=== PATIENT | male | born 1960 | race Caucasian/White ===

== ENCOUNTER 2018-04-19 10:33 | Emergency (ER) | payer SELFPAY ==
[2018-04-19 11:15] LABS: #Eosinphils 0.2 thou/uL (0.0-0.7); #Lymphocytes 1.9 thou/uL (1.20-3.40); #Monocytes 0.5 thou/uL (0.11-0.59); #Neutrophils 2.6 thou/uL (1.40-6.50); %Basophils 0.9 % (0.0-1.0); %Lymphocytes 36.6 % (21.0-51.0); %Monocytes 8.8 % (0.0-10.0); %Neutrophils 49.8 % (42.0-75.0); Hemoglobin 14.1 g/dL (14.0-18.0); Mean Corpuscular HGB CONC 33.2 g/dL (32.0-36.0); Mean Corpuscular Hemoglobin 26.7 pg (27.0-31.0); Mean Corpuscular Volume 80.7 fL (78.0-98.0); Mean Platelet Volume 7.2 fL (7.4-10.4); Platelet Count 174 thou/uL (130-400); Red Blood Cell (RBC) Count 5.28 mill/uL (4.70-6.10); White Blood Cell (WBC) Count 5.3 thou/uL (4.8-10.8)
[2018-04-19 11:22] LABS: ALT (SGPT) 56 U/L (8-55); AST (SGOT) 32 U/L (5-34); Albumin 4.6 g/dL (3.5-5.0); Alkaline Phosphatase 49 U/L (40-150); Anion Gap 12 mmol/L (10-20); BUN (Urea Nitrogen) 13 mg/dL (8.4-25.7); Bilirubin, Total 0.5 mg/dL (0.2-1.2); CK (CPK) 197 U/L (30-200); CKMB 3.9 ng/mL (0-6.6); Calc. Creatinine Clearance 0 mL/min (70-130); Calcium 9.7 mg/dL (7.8-10.44); Carbon Dioxide 26 mmol/L (22-29); Chloride 105 mmol/L (98-107); Estimated GFR-MDRD Greater than 90; Globulin 2.9 g/dL (2.4-3.5); Glucose 95 mg/dL (70-105); Potassium 4.2 mmol/L (3.5-5.1); Protein, Total 7.5 g/dL (6.0-8.3); Sodium 139 mmol/L (136-145); Troponin I Less than 0.010 ng/mL (< 0.028)
--- NOTE | 2018-04-19 11:41 | RAD ---
2 VIEW CHEST: Date: 04/19/18 HISTORY: Chest pain. Left arm pain. FINDINGS: The lung taveras are clear. Heart and mediastinum unremarkable. Vascular markings normal. Osseous stru ctures unremarkable. IMPRESSION: No acute abnormality identified. POS: [facility]
[2018-04-19] MEDS ORDERED: Cyclobenzaprine 10 MG TAB ONE (12:33)
== END 2018-04-19 12:35 | disposition home or self-care (01) ==
LOC: SCSER 10:33
DX: R07.89 Other chest pain (principal); M54.12 Radiculopathy, cervical region; E11.9 Type 2 diabetes mellitus without complications; I10 Essential (primary) hypertension; J44.9 Chronic obstructive pulmonary disease, unspecified; E78.5 Hyperlipidemia, unspecified; F32.9 Major depressive disorder, single episode, unspecified; Z79.4 Long term (current) use of insulin; Z79.899 Other long term (current) drug therapy
CPT/HCPCS: 36415; 71046; 80053; 82550; 82553; 84484; 85025; 93005

== ENCOUNTER 2019-05-20 14:59 | Outpatient (CLI) | payer OTHER ==
--- NOTE | 2019-05-20 15:32 | RAD ---
XR Chest Pa Lat STANDARD History: Disability exam Z 02.71 Comparison: Chest radiograph 2018 Findings: Lungs are clear. No pneumothorax. No effusion. No acute osseous abnormality. Heart size is mildly enlarged. Impression: No acute intrathoracic abnormality. No significant change.
--- NOTE | 2019-05-20 15:32 | RAD ---
XR Hip Rt 2-3 View History: Disability exam Z02.71 Comparison: None. Findings: No acute fracture or malalignment. Small acetabular osteophyte formation. Visualized portio n of the right obturator ring is intact. Impression: No acute fracture or malalignment.
== END 2019-05-20 15:00 | disposition home or self-care (01) ==
LOC: BICRAD 14:59
PROVIDERS: ATTEND Internal Medicine
DX: Z02.71 Encounter for disability determination (principal)
CPT/HCPCS: 71046

== ENCOUNTER 2019-12-26 19:30 | Outpatient (CLI) | payer MEDICAID | END 2019-12-26 19:31 | disposition home or self-care (01) | LOC: SLEEPLAB 19:30 | PROVIDERS: ATTEND Internal Medicine | DX: G47.33 Obstructive sleep apnea (adult) (pediatric) (principal) | CPT/HCPCS: 95811 ==

== ENCOUNTER 2020-01-22 08:45 | Outpatient (CLI) | payer OTHER ==
--- NOTE | 2020-01-22 09:38 | CT ---
EXAM: CT Abdomen Pelvis W WO con PROVIDED CLINICAL HISTORY: Prostatic hyperplasia COMPARISON: None FINDINGS: The visualized lung bases are free of significant opacity. Tiny nonobstructing inferior pole left renal calculus. No additional urinary tract calculi are eviden t. Subcentimeter hypodensity involving posterior left kidney, too small to definitively characterize but statistically reflecting a cyst. The solid abdominal organs demonstrate an otherwise unremarkable CT appearance. The delayed images demonstrate no evidence for filling defect involving the renal collecting systems, opacified ureters or urinary bladder. The prostate gland measures about 5.7 cm in width. There is no bowel dilatation, inflammatory fat stranding, free fluid or lymph node enlargement appare nt. Scattered vascular calcifications are seen. The osseous structures demonstrate no concerning lytic or blastic lesions. Lower lumbar spine facet a rthritis. IMPRESSION: Tiny nonobstructing inferior pole left renal calculus.
[2020-01-22] MEDS ORDERED: Iopamidol 370 76% 100 ML VIAL ONE (13:21)
== END 2020-01-22 08:46 | disposition home or self-care (01) ==
LOC: CT 08:45
PROVIDERS: ATTEND Urology
DX: N40.1 Benign prostatic hyperplasia with lower urinary tract symptoms (principal); R31.29 Other microscopic hematuria; R80.9 Proteinuria, unspecified; N20.0 Calculus of kidney
CPT/HCPCS: 74178; Q9967

== ENCOUNTER 2020-06-17 09:42 | Outpatient (CLI) | payer OTHER ==
--- NOTE | 2020-06-17 10:43 | RAD ---
XR Chest 1 View History: Preop evaluation Comparison: None. Findings: Lungs are clear. No pneumothorax. No effusion. Cardiac silhouette and mediastinal contours are within normal limits. Impression: No acute intrathoracic abnormality.
--- NOTE | 2020-06-21 17:26 | EKG ---
Test Reason : Blood Pressure : / mmHG Vent. Rate : 083 BPM Atrial Rate : 083 BPM P-R Int : 170 ms QRS Dur : 106 ms QT Int : 362 ms P-R-T Axes : 058 064 013 degrees QTc Int : 425 ms Normal sinus rhythm Normal ECG No previous ECGs available Confirmed by BJ SAWYER (2) on 06/21/2020 5:26:13 PM Referred By: CIPRIANO Confirmed By:BJ SAWYER
== END 2020-06-17 09:43 | disposition home or self-care (01) ==
LOC: LABBT 09:42
PROVIDERS: ATTEND Urology
DX: Z01.818 Encounter for other preprocedural examination (principal); N40.1 Benign prostatic hyperplasia with lower urinary tract symptoms; N52.9 Male erectile dysfunction, unspecified; E11.9 Type 2 diabetes mellitus without complications; Z79.4 Long term (current) use of insulin; N53.8 Other male sexual dysfunction; R31.29 Other microscopic hematuria; R80.9 Proteinuria, unspecified; Z87.898 Personal history of other specified conditions; N20.0 Calculus of kidney; N28.1 Cyst of kidney, acquired; N45.1 Epididymitis
CPT/HCPCS: 71045; 81001; 87086; 93005; 93010

== ENCOUNTER 2020-09-28 09:01 | Outpatient (CLI) | payer OTHER ==
[2020-09-28 09:52] LABS: Estimated GFR-MDRD - POC Greater than 90
[2020-09-28] MEDS ORDERED: Magnevist 469MG/ML 20 ML VIAL ONE (10:46)
--- NOTE | 2020-09-29 08:31 | MRI ---
MRI OF THE PROSTATE WITHOUT AND WITH CONTRAST: HISTORY: Prostate cancer. The patient has a history of TURP and prostate biopsy. TECHNIQUE: Multiplanar, multisequence MRI images were obtained of the prostate without and with IV contrast. FINDINGS: There is moderate hypertrophy of the central gland consistent with BPH. Prostate volume is estimated at 34 mL. There is a slight defect in the periurethral prostatic tissue consistent with prior TURP. There is high T1 signal in the right prostate, predominantly in a peripheral zone. This produces a l ow T2 signal lesion in the peripheral zone measuring 1.7 cm in greatest dimension. This is in the mi d gland extending to the apex. This demonstrates decreased signal on the diffusion sequence and ADC map consistent with artifact from blood products. No restricted diffusion is seen in the prostate. No suspicious areas of low signal are seen on the A DC map within the prostate. No suspicious low T2 signal lesions are seen in the prostate. The seminal vesicles are intact. The neurovascular bundles are intact. No pelvic adenopathy is seen . No marrow signal abnormality is present. No suspicious enhancement is seen. IMPRESSION: PIRADS category 2 - low likelihood that a clinically significant cancer is present. POS: [facility]
== END 2020-09-28 09:02 | disposition home or self-care (01) ==
LOC: TBSIIMAG 09:01
PROVIDERS: ATTEND Urology
DX: C61 Malignant neoplasm of prostate (principal); Z90.79 Acquired absence of other genital organ(s)
CPT/HCPCS: 72197; 82565; A9579

== ENCOUNTER 2020-10-27 06:18 | Day surgery (SDC) | payer OTHER ==
[2020-10-20 10:45] VITALS: BMI 39.6
[2020-10-27] MEDS ORDERED: Fentanyl 100 MCG/2 ML VIAL ONE (06:39)
[2020-10-27] MEDS ORDERED: cefTRIAXone\\ROCEPHIN 2 GM VIAL ONE (06:43)
[2020-10-27] MEDS ORDERED: Sodium Chloride 0.9% 100 ML ONE (06:43)
[2020-10-27] MEDS ORDERED: Levofloxacin 500 mg/D5W 100 ml Premix Bag ONE (06:43)
[2020-10-27] MEDS ORDERED: Propofol 1,000 MG/100 ML VIAL IV ONE (07:17)
[2020-10-27] MEDS ORDERED: Phenazopyridine HCl 100 MG TAB ONE ×2 (08:25→08:38)
[2020-10-27] MEDS ORDERED: Lidocaine 1% PF 5 ML VIAL ONE (08:33)
--- NOTE | 2020-10-27 08:58 | OP ---
DATE OF PROCEDURE: 10/27/2020 PRIMARY CARE PHYSICIAN: Mike Shin MD. PREOPERATIVE DIAGNOSES: 1. A 59-year-old male with history of benign prostatic hypertrophy status post transurethral resection of the prostate. 2. History of elevated prostate-specific antigen, previous biopsy negative for malignancy, status post transurethral resection with incidental pathologic T1-8, [place] score 3+3 prostate cancer, 1% of transurethral resection specimen. 3. Urgency. POSTOPERATIVE DIAGNOSES: 1. A 59-year-old male with history of benign prostatic hypertrophy status post transurethral resection of the prostate. 2. History of elevated prostate-specific antigen, previous biopsy negative for malignancy, status post transurethral resection with incidental pathologic T1-8, [place] score 3+3 prostate cancer, 1% of transurethral resection specimen. 3. Urgency. PROCEDURE: Cystoscopy, diagnostic; transrectal ultrasound volume study, prostate 12 core needle biopsy. ANESTHESIA: LMA. ESTIMATED BLOOD LOSS: Minimal. COMPLICATIONS: None apparent. DISPOSITION: To recovery room in stable condition. INTRAOPERATIVE FINDINGS: 1. Cystoscopy demonstrates good TUR defect with no evidence of bladder neck contracture, bladder neck wide open. There is mild residual adenoma at 6 o'clock position ventrally at the mid apical prostate nonobstructing. No evidence of bladder neck contracture, urethral stricture of concern. 2. Transrectal ultrasound volume study of 21.2 g. INDICATIONS FOR THE PROCEDURE AND HISTORY: Mr. Oshea is a 59-year-old morbidly obese male with prior history of elevated PSA in which he had undergone prostate biopsy negative for malignancy. He had severe BPH symptoms and underwent transurethral resection of prostate. Postoperatively, he did have some urgency and urge incontinence in which he had a VESIcare initiated. Subsequently, he had mild elevated PVR, therefore we discontinued his anticholinergics. He states that he has been doing well with minimal urgency and urge incontinence and flow is adequate and strong for patient. He presents today for diagnostic cystoscopy to rule out bladder neck contracture stricture due to history of incomplete voiding status post TURP, and a standard transrectal ultrasound prostate biopsy for staging of his prostate cancer. Risks and complications of procedure had been fully discussed with the patient including, but not limited to: Bleeding, pain, infection, injury to adjacent organs, urosepsis, bladder injury, possible bleeding complication requiring secondary procedure has been discussed with him in detail as well sepsis. DESCRIPTION OF PROCEDURE: After an informed consent was signed, the patient was taken to the operating room, placed in a dorsal lithotomy position with the genital area prepped and draped in the usual surgical sterile fashion. A 22-Faroese cystoscope was utilized, which demonstrated normal anterior urethra. Prostatic urethra was entered, which demonstrated a good adequate TUR defect. There was no significant obstruction of concern. There was mild residual adenoma at 6 o'clock position eventually at the mid prostate, however, this is nonobstructing. Bladder neck was wide open with no evidence of bladder neck contracture. At this time, we placed a 16-Faroese coude Sexton catheter without any significant issues obtain clear yellow urine. This was secured to gravity bag. He was then placed in a lateral decubitus position and a transrectal ultrasound was placed. A volume study was initiated, which demonstrated a length of 3.7, width of 5.0, height of 2.1 with volume estimated to be 21.2 g. Subsequently, we performed a standard 12 core needle prostate biopsy, which specimens were appropriately labeled and sent. He tolerated the procedure well and transported to the recovery room in stable condition. He is discharged with Levaquin x3 days, will see me for postop followup to review his pathology. We will continue to monitor his peak-flow PVR. addendum, no significant PVR postop. Job ID: [id number] [facility]
== END 2020-10-27 11:02 | disposition home or self-care (01) ==
LOC: SDC 06:18
PROVIDERS: ATTEND Urology
PROC: 0VB03ZX Excision of Prostate, Percutaneous Approach, Diagnostic (ICD-10-PCS; principal; 2020-10-27)
PROC: BV49ZZZ Ultrasonography of Prostate and Seminal Vesicles (ICD-10-PCS; principal; 2020-10-27)
DX: C61 Malignant neoplasm of prostate (principal); N40.1 Benign prostatic hyperplasia with lower urinary tract symptoms; N39.41 Urge incontinence; I10 Essential (primary) hypertension; J44.9 Chronic obstructive pulmonary disease, unspecified; E11.9 Type 2 diabetes mellitus without complications; E78.5 Hyperlipidemia, unspecified; H91.90 Unspecified hearing loss, unspecified ear; E66.9 Obesity, unspecified; Z68.39 Body mass index [BMI] 39.0-39.9, adult; Z79.4 Long term (current) use of insulin; Z79.899 Other long term (current) drug therapy; Z88.5 Allergy status to narcotic agent
CPT/HCPCS: 36416; 88305; J0696; J1956; J2704; J3010; J3490

== ENCOUNTER 2021-11-22 09:53 | Outpatient (CLI) | payer OTHER | END 2021-11-22 09:54 | disposition home or self-care (01) | LOC: BICRAD 09:53 | PROVIDERS: ATTEND Nurse Practitioner Family | DX: Z01.818 Encounter for other preprocedural examination (principal) | CPT/HCPCS: 71046 ==

== ENCOUNTER 2022-11-07 09:32 | Outpatient (CLI) | payer OTHER ==
[2022-11-07] MEDS ORDERED: Magnevist 469MG/ML 20 ML VIAL ONE (13:24)
== END 2022-11-07 09:33 | disposition home or self-care (01) ==
LOC: TBSIIMAG 09:32
PROVIDERS: ATTEND Urology
DX: C61 Malignant neoplasm of prostate (principal)
CPT/HCPCS: 72197; A9579

== ENCOUNTER 2023-02-21 12:31 | Outpatient (CLI) | payer OTHER | END 2023-02-21 12:32 | disposition home or self-care (01) | LOC: SCSMRI 12:31 | PROVIDERS: ATTEND Orthopaedic Surgery Hand Surgery | DX: M50.11 Cervical disc disorder with radiculopathy, high cervical region (principal); M51.14 Intervertebral disc disorders with radiculopathy, thoracic region | CPT/HCPCS: 72141 ==

== ENCOUNTER 2023-10-04 11:03 | Outpatient (CLI) | payer OTHER ==
[2023-10-04 13:34] LABS: Anion Gap 15 mmol/L (10-20); BUN (Urea Nitrogen) 18 mg/dL (8.4-25.7); Calc. Creatinine Clearance 0 mL/min (70-130); Calcium 9.2 mg/dL (7.8-10.44); Carbon Dioxide 26 mmol/L (22-29); Chloride 104 mmol/L (98-107); Estimated GFR 99; Glucose 181 mg/dL (70-105); Sodium 141 mmol/L (136-145)
== END 2023-10-04 11:04 | disposition home or self-care (01) ==
LOC: LABBT 11:03
PROVIDERS: ATTEND Neurological Surgery
DX: Z01.818 Encounter for other preprocedural examination (principal); M47.812 Spondylosis without myelopathy or radiculopathy, cervical region
CPT/HCPCS: 80048; 93005; 93010